=== PATIENT | male | born 1970 | race Caucasian/White ===

== ENCOUNTER 2024-04-20 13:15 | Emergency (ER) | payer MEDICAID ==
[~2024-04-20] VITALS: Ht 165.1 cm; Wt 59.0 kg
[~2024-04-20 13:15] MED LIST: HYDR-4353 PO; NORCO10T PO; ZES10T PO
[2024-04-20 16:17] LABS: BASOPHILS % (AUTO) 0.4 % (0-1); EOSINOPHILS # (AUTO) 0.3 X10'3 (0-0.9); EOSINOPHILS % (AUTO) 5.4 % (0-6); HEMATOCRIT 38.3 % (42.0-52.0); HEMOGLOBIN 13.2 g/dl (14.0-17.9); LYMPHOCYTES # (AUTO) 0.7 X10'3 (1.1-4.8); LYMPHOCYTES % (AUTO) 13.4 % (21-51); MEAN CORPUSCULAR HEMOGLOBIN 31.6 PG (27.0-31.0); MEAN CORPUSCULAR HGB CONC 34.4 g/dL (33.0-36.5); MEAN CORPUSCULAR VOLUME 91.9 FL (78-98); MONOCYTES # (AUTO) 0.7 X10'3 (0-0.9); MONOCYTES % (AUTO) 12.6 % (2-12); NEUTROPHILS # (AUTO) 3.6 X10'3 (1.8-7.7); NEUTROPHILS % (AUTO) 68.2 % (42-75); PLATELET COUNT 236 X10'3 (140-440); RED BLOOD COUNT 4.17 X10'6 (4.70-6.10); WHITE BLOOD COUNT 5.3 X10'3 (4.5-11.0)
[2024-04-20 16:18] LABS: BILIRUBIN,URINE NEGATIVE (Neg); CLARITY,URINE CLOUDY (Clear); COLOR,URINE YELLOW (Yellow); GLUCOSE, URINE NEGATIVE (Neg); KETONES,URINE TRACE mg/dl (Neg); LEUKOCYTE ESTERASE ,URINE LARGE (Neg); NITRITES, URINE NEGATIVE (Neg); OCCULT BLOOD,URINE SMALL (Neg); PROTEIN,URINE 100 mg/dl (Neg); UROBILINOGEN,URINE >=8.0 E.U/dL (0.2-1.0)
[2024-04-20 16:25] LABS: UA COLLECTION TYPE URINAL
[2024-04-20 16:26] LABS: WBC,URINE TNTC /HPF (0-4)
[2024-04-20 16:27] LABS: BACTERIA,URINE 4+ /HPF (Neg); MUCUS STRANDS NONE SEEN /LPF (Neg); SQUAMOUS EPITHELIAL CELL,UR NONE SEEN /LPF (FEW)
[2024-04-20 16:33] LABS: ALANINE AMINOTRANSFERASE 16 U/L (12-78); ALBUMIN 3.2 G/DL (3.4-5.0); ALBUMIN/GLOBULIN RATIO 0.7 (1.1-1.5); ALKALINE PHOSPHATASE 113 IU/L (46-116); ANION GAP 5 (8-16); ASPARTATE AMINO TRANSFERASE 14 U/L (10-37); BILIRUBIN,TOTAL 0.5 MG/DL (0.1-1.0); BLOOD UREA NITROGEN 11 MG/DL (7-18); BUN/CREATININE RATIO 19.3 (10.0-20.0); CALCIUM 9.3 MG/DL (8.5-10.1); CHLORIDE 105 MMOL/L (99-107); CREATININE 0.57 MG/DL (0.60-1.10); GLUCOSE 84 MG/DL (70-104); POTASSIUM 4.4 MMOL/L (3.5-5.1); SODIUM 145 MMOL/L (135-145); TOTAL CARBON DIOXIDE 34.6 MMOL/L (24-32); TOTAL PROTEIN 7.7 G/DL (6.4-8.2); eCRCL 122 ML/MIN; eGFR > 90 ML/MIN
[2024-04-20 16:44] LABS: URINE AMPHETAMINE SCREEN NEGATIVE (Neg); URINE BARBITUATE SCREEN NEGATIVE (Neg); URINE BENZODIAZEPINES SCREEN POSITIVE (Neg); URINE CANNABINOID SCREEN NEGATIVE (Neg); URINE COCAINE SCREEN NEGATIVE (Neg); URINE METHADONE SCREEN NEGATIVE (Neg); URINE OPIATE SCREEN NEGATIVE (Neg); URINE PHENCYCLIDINE SCREEN NEGATIVE (Neg)
[2024-04-20] MEDS ORDERED: OLAN5TAB5 PO (17:17)
[2024-04-20] MEDS ORDERED: CEPH500C82 PO (17:18)
[2024-04-20] MEDS: CefTRIAXone 1000mg IM Kit (w/lidocaine diluent) IM ONE (17:38)
[2024-04-20] MEDS: OLANZapine 5mg rapidly disint. tablet PO ONE (17:38)
[2024-04-20 17:55] VITALS: BP 111/76; PULSE 59; RESP 16; TEMP 98.1; O2SAT 98
== END 2024-04-20 17:57 | disposition home or self-care (01) ==
LOC: ER 13:16
DX: N39.0 Urinary tract infection, site not specified (principal); I10 Essential (primary) hypertension; R45.1 Restlessness and agitation
CPT/HCPCS: 36415; 71045; 73030; 80053; 80305; 81001; 83605; 84484; 85025; 93005; 96372; 99285; J0696

== ENCOUNTER 2024-06-11 12:01 | Emergency (ER) | payer MEDICAID ==
[~2024-06-11] VITALS: Ht 188 cm; Wt 70.0 kg
[2024-06-11 12:05] VITALS: TEMP 98
[2024-06-11] MEDS: LIDOcaine 1% W/epiNEPHrine 1:100,000 20ml vial IJ ONE (13:15)
--- NOTE | 2024-06-11 13:22 | Physician Documentation ---
History of Present Illness ~ Chief Complaint: Mechanical Fall Stated Complaint: FALL Time Seen by MD: 12:37 Primary Medical Doctor: TIMMY Mode of Arrival: EMS, Stretcher HPI This 53-year-old male with a history of developmental delay, seizure disorder, ambulation problems, and chronic right shoulder pain presented by EMS after a fall while getting up from a bar stool, slipping and falling onto a linoleum floor, patient struck the back of his head and is complaining of worsened right shoulder pain. Patient is not on blood thinners and did not have loss of consciousness or seizure activity after the fall. Patient reports no neck pain, no nausea, and no vomiting. Patient reports no other injuries. Patient was accompanied by caregiver who reports patient was at baseline. Tetanus within 5 Years?: Yes Medication Reconciliation Allergies: Coded Allergies: No Known Allergies (Unverified , 06/11/24) Scheduled Hydrocodone Bit/Acetaminophen ([place] 10-325 Tablet), 1 TAB PO Q6H, (Reported) Hydrocodone Bit/Acetaminophen 10/325 MG* ([place] 10/325 MG*), 1 TAB PO Q6H Lisinopril* (Zestril*), 10 MG PO BID, (Reported) Past Medical History Past Medical History: Hypertension, Chronic Back Pain Past Surgical History: other Alcohol Use: Heavy Lives with: Mother Review of Systems ROS Right shoulder pain and posterior head pain as stated above in the HPI, otherwise all systems are reviewed and negative. Physical Exam Vital Signs: Temperature: 98.0, Source: Oral, Heart Rate: 95, Respiratory Rate: 16, BP: 140/83, Pulse Oximetry: 97, Weight: 70.000 Physical Exam VITALS: Reviewed and as above. GENERAL: Alert, nontoxic appearing, no apparent distress. HEENT: Abrasion and hematoma to the occipital scalp, no laceration, no foreign body. No C-spine tenderness, PERRLA, EOMI, no wilson sign, no raccoon eyes RESPIRATORY: Lungs clear, normal breath sounds, no respiratory distress. CV: Regular rate, rhythm, no murmur GI: Soft, non-tender, bowels sounds present, no rebound, guarding, or rigidity BACK: No CVA tenderness, no midline tenderness, no tenderness to the back MUSCULOSKELETAL: Right shoulder tender to palpation. No deformities, no edema Progress Results/Orders Results/Orders Orders - JAYSON,VICTORIANO W GROUNDING ENGINEER Shoulder, Complete (Min 2 Vws) (06/11/24 13:12) Laceration/I&D Tray Set Up (06/11/24 13:12) Wound Care Orders (06/11/24 13:12) Completed Orders - VICTORIANO TYLER GROUNDING ENGINEER Shoulder, Complete (Min 2 Vws) (06/11/24 13:12) Tetanus/Pertuss/Diph Acell/Pf (Boostrix (06/11/24 13:20) Lidocaine 1% W/Epi 1:100,000 (Xylocaine (06/11/24 13:15) Vital Signs 06/11/24 06/11/24 12:05 14:37 Temp 98.0 Pulse 95 79 Resp 16 16 B/P (MAP) 140/83 103/66 Pulse Ox 97 99 EKG/XRAY/CT/US/VASC/MRI Bone/Soft Tissue X-Ray (Ext.) : Additional Comment XAM: DI SHOULDER, COMPLETE (MIN 2 VWS) CLINICAL INDICATION: Shoulder Pain From Fall TECHNIQUE: DI SHOULDER, COMPLETE (MIN 2 VWS) Comparison: DI SHOULDER, COMPLETE (MIN 2 VWS) on DOS: 04/20/24 FINDINGS/IMPRESSION: There is no evidence of acute fracture or dislocation. The visualized joint space is well maintained. The alignment is anatomical. There is no radiopaque foreign body. Electronically Signed by:KEON CHENG MD Date & Time: 06/11/24 1348 Dictated by: KEON CHENG MD Dictation date and time: 06/11/24 1331 I have reviewed and agree with the radiology report. I have reviewed and interpreted the imaging as: No fracture or dislocation Medical Decision Making Findings This 53-year-old male presented by EMS after he had a slip and fall on a linoleum floor striking his posterior scalp resulting in an abrasion and hematoma to the posterior scalp, patient did not lose consciousness and was not on blood thinners, additionally it was reassuring patient did not have any nausea or vomiting after the head strike and did not have any seizure activity after head strike. Patient had history of developmental delay and was accompanied by his mother who is his caregiver who is reporting patient is at baseline mental status. Patient additionally has history of previous right shoulder injury and chronic right shoulder pain which was aggravated in the fall, an x-ray of the shoulder did not demonstrate fracture or dislocation and exam was reassuring as it was no swelling, ecchymosis or erythema. Remainder of patient's physical exam was benign without other injuries found, per [place] C- spine rule imaging of the C-spine was not indicated as patient had no neck pain and was able to rotate his head 45 in each direction without pain, per [place] head CT rule head CT was not indicated. Vital signs were stable and patient is appropriate for outpatient follow up. Differential Dx:Considerations: Include: Closed head injury, Fracture(s), Spine injury, Vascular injury, Laceration(s) Departure Time of Disposition: 14:19 Disposition: 01 HOME / SELF CARE / HOMELESS Impression: Primary Impression: Fall Qualified Codes: W19.XXXA - Unspecified fall, initial encounter Additional Impression: Abrasion of scalp, initial encounter Condition: Improved Discharge Instructions: Abrasion, Oeld-if-Hlil, Fall Prevention in the Home, Adult, Gosk-[id number] Additional Instructions: Keep the area clean and dry, wash it gently. Please see the attached home care instructions. Please follow up with your primary care provider in the next few days. Please return to the emergency department for any new or worsening concerning symptoms including but not limited to signs of infection of the wound (increased swelling, drainage, or pain), confusion, behavior changes, persistent vomiting, or if he develops a fever that does not lower with ibuprofen or Tylenol. Referrals: NO PRIMARY CARE PROVIDER (PCP) Education Educated: Patient Educated regarding: diagnosis, treatment, prognosis, need for follow up Signature Scribe Signature: No scribe Attestation: The note accurately reflects work and decisions made by me.JAMI Sanabria 06/11/24 21:36 VICTORIANO TYLER June 11, 2024 13:22
[2024-06-11] MEDS: TETanus/Pertussis (Acell)/Diphther VAC/PF (Tdap-Adult) 0.5ml syringe IMVAC ONE (13:37)
--- NOTE | 2024-06-11 13:50 | RADIOLOGY REPORT ---
EXAM: DI SHOULDER, COMPLETE (MIN 2 VWS) CLINICAL INDICATION: Shoulder Pain From Fall TECHNIQUE: DI SHOULDER, COMPLETE (MIN 2 VWS) Comparison: DI SHOULDER, COMPLETE (MIN 2 VWS) on DOS: 04/20/24 FINDINGS/IMPRESSION: There is no evidence of acute fracture or dislocation. The visualized joint space is well maintained. The alignment is anatomical. There is no radiopaque foreign body.
[2024-06-11 14:37] VITALS: BP 103/66; PULSE 79; RESP 16; O2SAT 99
== END 2024-06-11 14:24 | disposition home or self-care (01) ==
LOC: ER 12:01
DX: S00.01XA Abrasion of scalp, initial encounter (principal); M25.511 Pain in right shoulder; I10 Essential (primary) hypertension; G89.29 Other chronic pain; M54.9 Dorsalgia, unspecified; F10.90 Alcohol use, unspecified, uncomplicated; G40.909 Epilepsy, unspecified, not intractable, without status epilepticus; Z79.899 Other long term (current) drug therapy; Y90.9 Presence of alcohol in blood, level not specified; W01.0XXA Fall on same level from slipping, tripping and stumbling without subsequent striking against object, initial encounter; Y93.89 Activity, other specified; Y92.89 Other specified places as the place of occurrence of the external cause; Y99.8 Other external cause status
CPT/HCPCS: 73030; 90471; 90715; 99284